=== PATIENT | female | born 1990 | race Caucasian/White ===

== ENCOUNTER 2021-01-25 02:33 | Emergency (ER) | payer BC, OTHER ==
[~2021-01-25] VITALS: Ht 175 cm; Wt 110.0 kg
[~2021-01-25 02:33] MED LIST: ONDA4TAB11 PO
[2021-01-25 02:50] VITALS: BP 128/69
--- NOTE | 2021-01-25 02:57 | ED GI ---
General Chief Complaint: Abdominal/GI Problems Stated Complaint: N/V/D Source of Information: Patient Exam Limitations: No Limitations History of Present Illness Date Seen by Provider: Jan 25, 2021 Time Seen by Provider: 02:41 Initial Comments Patient presents to the ER by private conveyance with her significant other and chief complaint of nausea vomiting diarrhea sudden onset tonight same time as her significant other. The ate Sonic. Not sure if maybe they got food poisoning. No fevers. She is vomiting blood in her diarrhea. Some cramping pain. She had some Zofran left over from a previous encounter and took a tablet but she says she thinks she vomited immediately back up. Allergies and Home Medications Allergies Uncoded Allergies: PENICILLIN (Allergy, Mild, 02/14/16) Home Medications Ondansetron 4 Mg Tab.rapdis, 4 MG PO Q6H PRN for NAUSEA/VOMITING Prescribed by: YULIET HATFIELD on 02/14/16 0540 Patient Home Medication List Home Medication List Reviewed: Yes Review of Systems Review of Systems Constitutional: No chills, No diaphoresis EENTM: No Blurred Vision, No Eye Pain Respiratory: Denies Cough, Denies Shortness of Air Cardiovascular: Denies Chest Pain, Denies Lightheadedness Gastrointestinal: Denies Constipated; Diarrhea, Nausea, Poor Fluid Intake, Vomiting Genitourinary: Denies Burning, Denies Discharge Musculoskeletal: No back pain, No joint pain All Other Systems Reviewed Negative Unless Noted: Yes Past Kqlouwh-Gfrlvl-Fqfglk Hx Patient Social History Alcohol Use: Denies Use Smoking Status: Never a Smoker Seasonal Allergies Seasonal Allergies: No Past Medical History Orthopedic, Tonsillectomy Reproductive Disorders: No Sexually Transmitted Disease: No HIV/AIDS: No Adverse Reaction/Blood Tranf: No Family Medical History No Pertinent Family Hx Physical Exam Vital Signs Capillary Refill : Height/Weight/BMI Height: 5'8" Weight: 190lbs. oz. 86.201845ql; BMI Method:Stated General Appearance: WD/WN, mild distress HEENT: PERRL/EOMI, pharynx normal Neck: full range of motion, normal inspection Respiratory: no respiratory distress, no accessory muscle use Cardiovascular: normal peripheral pulses, regular rate, rhythm (Heart rate in the 80s) Gastrointestinal: normal bowel sounds, non tender, soft Neurologic/Psychiatric: alert, oriented x 3 Skin: normal color, warm/dry Progress/Results/Core Measures Results/Orders My Orders Orders - LEO VORA Ua Culture If Indicated (01/25/21 02:35) Ondansetron Injection (Zofran Injectio (01/25/21 03:00) Progress Progress Note : Time: 02:54 Progress Note Well-appearing adult with a septic vital signs and nausea vomiting diarrhea. Likely toxin versus viral gastroenteritis. We will give her 8 mg ondansetron IM and some more tablets. We have instructed her to drink lots of fluids. Departure Impression Primary Impression: Gastroenteritis and colitis, toxic Disposition: 01 HOME, SELF-CARE Condition: Stable Departure-Patient Inst. Decision time for Depature: 02:55 Referrals: NO,LOCAL PHYSICIAN (PCP) Primary Care Physician Patient Instructions: [id number] Add. Discharge Instructions: I suspect you are exposed to some kind of toxin/food poisoning tonight. Symptoms should resolve in the next day or so. Let the diarrhea go for now. Ondansetron 1 to 2 tablets every 6 hours as necessary under your tongue to control your nausea so that she can continue putting in fluids faster than you are losing it. Return to the ER if you are becoming dehydrated or develop high fever above 102.5. If it is a virus then you may have fevers and it may last 3 to 5 days. All discharge instructions reviewed with patient and/or family. Voiced understanding. Scripts Ondansetron (Ondansetron Odt) 4 Mg Tab.rapdis 4 MG PO Q6H PRN for NAUSEA/VOMITING, #8 TAB 0 Refills Prov: LEO VORA 01/25/21 Work/School Note: Work Release Form Date Seen in the Emergency Department: Jan 25, 2021 Return to Work: Jan 27, 2021 Restrictions: No Restrictions LEO VORA Jan 25, 2021 02:57
[2021-01-25] MEDS ORDERED: ONDA4TAB11 PO (02:58)
[2021-01-25] MEDS ORDERED: ONDANSETRON 4 MG/2 ML (SDV) Z0FRAN IM ONE (03:00)
== END 2021-01-25 03:15 | disposition home or self-care (01) ==
LOC: EDUNIT# 02:33 → ER 02:35
DX: K52.1 Toxic gastroenteritis and colitis (principal); Z88.0 Allergy status to penicillin
CPT/HCPCS: 99284

== ENCOUNTER → 2021-10-07 | Outpatient (CLI) | payer BC ==
[~2021-10-07] VITALS: Ht 173 cm; Wt 97.7 kg
[~2021-10-07] MED LIST changes: +ACETAMINOPHEN 500 MG TAB (TYLENOL) PO PRN; +BAMLANIVIMAB 700 MG/ETESEVIMAB 1,400 MG IN NS IV ONE; +EPINEPHrine INJECTION 1 MG/ML AMP IM PRN; +ONDANSETRON 4 MG/2 ML (SDV) Z0FRAN IV PRN; +diphenhydrAMINE 50 MG/ML INJ (BENADRYL) IV PRN
[2021-10-07 09:50] VITALS: BP 122/65
[2021-10-07 10:36] VITALS: BP 122/65
[2021-10-07 11:27] VITALS: BP 105/74
[2021-10-07 11:40] VITALS: BP 105/74
[2021-10-07 11:41] VITALS: BP 105/74
== END ==
LOC: INFUSION 09:50
PROVIDERS: ATTEND Physician Assistant
DX: U07.1 COVID-19 (principal)

== ENCOUNTER 2023-07-24 22:07 | Emergency (ER) | payer BC ==
[~2023-07-24] VITALS: Ht 172.7 cm; Wt 98.9 kg
[~2023-07-24 22:07] MED LIST changes: -ACETAMINOPHEN 500 MG TAB (TYLENOL) PO PRN; -BAMLANIVIMAB 700 MG/ETESEVIMAB 1,400 MG IN NS IV ONE; -EPINEPHrine INJECTION 1 MG/ML AMP IM PRN; -ONDANSETRON 4 MG/2 ML (SDV) Z0FRAN IV PRN; -diphenhydrAMINE 50 MG/ML INJ (BENADRYL) IV PRN
[2023-07-24] MEDS ORDERED: NS IV 1000 ML 1,000 ML IV STA (23:29)
--- NOTE | 2023-07-24 23:40 | ED General ---
General Chief Complaint: Cardiac/General Problems Stated Complaint: CHEST TIGHTNESS, FATIGUE IN ARMS, DIZZINESS Nursing Triage Note: PT A&OX3; PT AMBULATES TO ROOM WITHOUT ASSISTANCE OF ER STAFF; PT ADVISES THAT TONIGHT AFTER WALKING AT THE PARK, SHE NOTICED SHE WAS HAVING SOME PALPITATIONS AND HEAVINESS IN HER CHEST; PT REPORTS THAT SHE HAS PREVIOUSLY HAD SIMILAR ISSUES BUT THAT THEY RESOLVED ON THEIR OWN; TONIGHT PTS SYMPTOMS HAVE CONTINUED; PT HAS BEEN EVALUATED BY PCP FOR SIMILAR SYMPTOMS BUT HAS NOT HAD A REFERRAL TO A REAL ESTATE [employer] [employer]NA[facility] (KERRY TEJEDA) History of Present Illness Date Seen by Provider: Jul 24, 2023 Time Seen by Provider: 23:18 Initial Comments 33yo F with PMH of pre-eclampsia and hypothyroidism presents to ED with c/o new onset heart palpitations, chest heaviness with radiation to mid back, and associated SOA, lightheadedness, and dizziness that started at 630pm this evening. Pt is currently 16 weeks with her second child. Pt see Dr. Winkler in [place] for OBGYN care. Pt states that for the past couple of weeks she has been experiencing episodes of palpitations when she skips meals and then episodes of dizziness and SOA after eating. Pt was advised by OB to eat frequent higher protein meals and states that this had been helping symptoms until this evening. Tonight, pt was doing chores around the house when she suddenly experienced "intense" palpitations that are worse than any of her other previous episodes, with associated midsternal chest heaviness. Pt states that that chest heaviness radiated to her mid back and felt like "something needed to be popped". Pt states that the chest heaviness and palpitations started to make her feel SOA especially when walking. Notes that she was SOA just ambulating from bed to bathroom which is not normal for her. Also notes some b/l "fatigue in arms". Pt ate dinner as recommended by her doctor, lolis zamudio with some sweet tea, but denies any improvement of symptoms. Pt states that she rested with her feet up and laid with her son but still her symptoms persisted. Pt took 2 tabs of tylenol at 823p with no relief. Pt says that she started to panic and cry at this time, which prompted her to come to the ED for further evaluation. In room, pt is sitting comfortably in bed. Notes improvement of pain since arriving to ED but states she still feels the palpitations. Pt takes a low dose ASA for her h/o pre-eclampsia. States that son recently had flu about a week ago. Not vaccinated for flu or COVID. Denies cough, fever, chills, abd pain, nausea, vomiting, diaphoresis, PERSON, urinary symptoms, diarrhea, h/o DVT/PE, recent long travel, h/o gestational diabetes or DM, and new leg swelling. Timing/Duration: 4-6 Hours Severity: Mild Modifying Factors: improves with Movement (exacerbates) Associated Systoms: Chest Pain (pressure); No Cough, No Diaphoresis, No Headaches, No Nausea/Vomiting; Shortness of Air (KERRY TEJEDA) Allergies and Home Medications Allergies Uncoded Allergies: PENICILLIN (Allergy, Mild, 02/14/16) Patient Home Medication List Home Medication List Reviewed: Yes (KERRY TEJEDA) Home Medication List Reviewed: Yes (KAMERON MEDINA MD) Ondansetron (Ondansetron Odt) 4 Mg Tab.rapdis, 4 MG PO Q6H PRN for NAUSEA/VOMITING Prescribed by: YULIET HATFIELD on 02/14/16 0540 Ondansetron (Ondansetron Odt) 4 Mg Tab.rapdis, 4 MG PO Q6H PRN for NAUSEA/VO MITING Prescribed by: LEO VORA on 01/25/21 0258 Review of Systems Review of Systems Constitutional: no symptoms reported EENTM: no symptoms reported Expected Date of Delivery: Jan 09, 2024 (KERRY TEJEDA) Past Otqhnnc-Fptsyg-Nvmfgw Hx Patient Social History Tobacco Use?: No Use of E-Cig and/or Vaping dev: No Substance use?: No Alcohol Use?: No Pt feels they are or have been: No (KERRY TEJEDA) Immunizations Up To Date Influenza Vaccine Up-to-Date: No; Not Current First/Initial COVID19 Vaccinat: N/A (KERRY TEJEDA) Seasonal Allergies Seasonal Allergies: No (KERRY TEJEDA) Past Medical History Surgery/Hospitalization HX: P:1/PRE-ECLAMPSIA Surgeries: Yes Section, Gallbladder, Orthopedic, Tonsillectomy Respiratory: No Cardiac: No Neurological: No : Yes Expected Date of Delivery: Jan 09, 2024 Last Menstrual Period: April 04, 2023 Reproductive Disorders: No Sexually Transmitted Disease: No HIV/AIDS: No Gastrointestinal: No Musculoskeletal: No Endocrine: No Hypothyroidsim Cancer: No Psychosocial: No Integumentary: No Blood Disorders: No Adverse Reaction/Blood Tranf: No (KERRY TEJEDA) Family Medical History Other Conditions/Hx (Mother-h/o recurrent episodes of "tachycardia") (KERRY TEJEDA) Physical Exam Vital Signs Vital Signs - First Documented 07/24/23 22:15 Temp 36.6 Pulse 93 Resp 16 B/P (MAP) 142/99 (113) Pulse Ox 100 O2 Delivery Room Air (KAMERON MEDINA MD) Vital Signs Capillary Refill : Less Than 3 Seconds (KERRY TEJEDA) Height, Weight, BMI Height: 5'8" Weight: 190lbs. oz. 86.399046lh; 33.00 BMI Method:Stated General Appearance: No Apparent Distress, WD/WN HEENT: PERRL/EOMI Neck: Non Tender, Supple Respiratory: Chest Non Tender, Lungs Clear, Normal Breath Sounds, No Accessory Muscle Use, No Respiratory Distress Cardiovascular: Regular Rate, Rhythm, No Murmur, Normal Peripheral Pulses Gastrointestinal: Normal Bowel Sounds, Non Tender, Soft Back: Normal Inspection, No CVA Tenderness, No Vertebral Tenderness Extremity: Non Tender, No Calf Tenderness Neurologic/Psychiatric: Alert, Oriented x3, No Motor/Sensory Deficits, Normal Mood/Affect Skin: Normal Color, Warm/Dry Lymphatic: No Adenopathy (KERRY TEJEDA) Progress/Results/Core Measures Suspected Sepsis SIRS Temperature: Pulse: 93 Respiratory Rate: 16 Laboratory Tests 07/24/23 00:25: Blood Pressure 142 /99 Mean: 113 Laboratory Tests 07/24/23 00:25: (KERRY TEJEDA) Results/Orders Lab Results Laboratory Tests Test 07/24/23 00:25 Range/Units White Blood Count 7.6 4.3-11.0 10^3/uL Red Blood Count 3.93 3.80-5.11 10^6/uL Hemoglobin 12.1 11.5-16.0 g/dL Hematocrit 36 35-52 % Mean Corpuscular Volume 91 80-99 fL Mean Corpuscular Hemoglobin 31 25-34 pg Mean Corpuscular Hemoglobin Concent 34 32-36 g/dL Red Cell Distribution Width 12.5 10.0-14.5 % Platelet Count 214 130-400 10^3/uL Mean Platelet Volume 9.9 9.0-12.2 fL Immature Granulocyte % (Auto) 1 % Neutrophils (%) (Auto) 74 42-75 % Lymphocytes (%) (Auto) 14 12-44 % Monocytes (%) (Auto) 10 0-12 % Eosinophils (%) (Auto) 1 0-10 % Basophils (%) (Auto) 0 0-10 % Neutrophils # (Auto) 5.7 1.8-7.8 10^3/uL Lymphocytes # (Auto) 1.0 1.0-4.0 10^3/uL Monocytes # (Auto) 0.7 0.0-1.0 10^3/uL Eosinophils # (Auto) 0.1 0.0-0.3 10^3/uL Basophils # (Auto) 0.0 0.0-0.1 10^3/uL Immature Granulocyte # (Auto) 0.1 0.0-0.1 10^3/uL Prothrombin Time 12.2 12.2-14.7 SEC INR Comment 0.9 0.8-1.4 Activated Partial Thromboplast Time 26 24-35 SEC Sodium Level 137 135-145 MMOL/L Potassium Level 3.6 3.6-5.0 MMOL/L Chloride Level 105 98-107 MMOL/L Carbon Dioxide Level 19 L 21-32 MMOL/L Anion Gap 13 5-14 MMOL/L Blood Urea Nitrogen 11 7-18 MG/DL Creatinine 0.66 0.60-1.30 MG/DL Estimat Glomerular Filtration Rate 118 BUN/Creatinine Ratio 17 Glucose Level 102 70-105 MG/DL Calcium Level 9.1 8.5-10.1 MG/DL Corrected Calcium 9.2 8.5-10.1 MG/DL Magnesium Level 1.9 1.6-2.4 MG/DL Total Bilirubin 0.2 0.1-1.0 MG/DL Aspartate Amino Transf (AST/SGOT) 17 5-34 U/L Alanine Aminotransferase (ALT/SGPT) 14 0-55 U/L Alkaline Phosphatase 45 40-136 U/L Troponin I < 0.028 <0.028 NG/ML Total Protein 7.4 6.4-8.2 GM/DL Albumin 3.9 3.2-4.5 GM/DL (KAMERON MEDINA MD) My Orders Orders - KAMERON MEDINA MD Heart Tones (07/24/23 23:25) Cbc With Automated Diff (07/24/23) Magnesium (07/24/23) Chest 1 View, Ap/Pa Only (07/24/23) Comprehensive Metabolic Panel (07/24/23) Protime With Inr (07/24/23) Partial Thromboplastin Time (07/24/23) O2 (07/24/23) Monitor-Rhythm Ecg Trace Only (07/24/23) Lipid Panel (07/25/23 06:00) Ed Iv/Invasive Line Start (07/24/23) Troponin I Steffi (07/24/23) Ns Iv 1000 Ml (Ns Iv 1000 Ml) (07/24/23 23:29) (KAMERON MEDINA MD) Vital Signs/I&O 07/24/23 22:15 Temp 36.6 Pulse 93 Resp 16 B/P (MAP) 142/99 (113) Pulse Ox 100 O2 Delivery Room Air (KAMERON MEDINA MD) Vital Signs/I&O Capillary Refill : Less Than 3 Seconds (KERRY TEJEDA) Blood Pressure Mean: 113 Progress Note : Time: 01:36 Progress Note Patient seen and evaluated by me. I have reviewed the medical student's documentation and agree. My evaluation today includes physical exam, chest pain protocol to include CBC, Chem-12, magnesium, serum troponin, EKG, single view chest x-ray. heart tones were also obtained as the patient is approximately 15 weeks gestation. Pertinent physical exam findings well-develop ed well-nourished mildly obese female in no acute distress. She is slightly hypertensive on arrival. Heart is regular, lungs are clear. No wheezing or distress is noted. She has brisk radial pulses bilaterally. Abdomen is soft and nontender. No lower extremity edema. No focal neurologic deficits are noted on exam. Differential diagnosis includes dehydration, arrhythmia, low clinical concern for STEMI, aortic dissection, PE. Labs independently reviewed and interpreted by me. CBC is reviewed and completely normal. Chemistry is completely unremarkable, normal magnesium, undetectable troponin. Coags within normal limits. Chest x-ray shows no acute abnormality. EKG is normal sinus rhythm at [address] segment change or arrhythmia. She has not been hypoxic or tachycardic on room air. Slightly hypertensive on arrival but this has improved at discharge to 142/75. She feels better at discharge without any intervention. heart tones taken at bedside in the 150s. Suspect that she may be having some type of tachycardia associated with . She is not clinically dehydrated nor do her labs ref lect this. She has had no arrhythmia while in the emergency department. No concerning findings for ST segment elevation KS, chest x-ray is normal, no clinical suspicion for dissection. No suspicion at this time for pulmonary embolism. Reassurance is provided to the patient. She has follow-up scheduled within the next week with her OB provider. Strict return precautions provided in both verbal and written format. All questions are sought and answered. Patient is stable for discharge. (KAMERON MEDINA MD) ECG Initial ECG Impression Date: Jul 24, 2023 Initial ECG Impression Time: 22:55 Initial ECG Rate: 78 Initial ECG Rhythm: Normal Sinus Initial ECG Intervals: Normal Initial ECG Impression: Nonspecific Changes (inferiorly) (KAMERON MEDINA MD) Diagnostic Imaging Diagonstic Imaging: Xray Plain Films/CT/US/NM/MRI: chest Comments Single view chest x-ray independently reviewed and interpreted by me, normal mediastinum, no effusions, no infiltrate (KAMERON MEDINA MD) Departure Impression Primary Impression: Palpitations Additional Impressions: Chest discomfort 15 weeks gestation of Disposition: HOME, SELF-CARE Condition: Improved Departure-Patient Inst. Decision time for Depature: 01:39 (KAMERON MEDINA MD) Referrals: ANA PALACIOS MD (PCP/Family) Primary Care Physician Patient Instructions: Chest Pain (DC) Add. Discharge Instructions: Drink plenty of fluids to stay well-hydrated. You can take gtzy-syd-bjnueyq extra strength Tylenol 2 tablets every 6 hours as needed for discomfort. If you have a return of chest pain especially pain that is associated with shortness of breath, nausea or sweating please return to the emergency department for reevaluation. Please follow-up with your OB care provider as scheduled. Verification and Attestation of Medical Student E/M Service A medical student performed and documented this service in my presence. I reviewed and verified all information documented by the medical student and made modifications to such information, when appropriate. I personally performed the physical exam and medical decision making. Kameron Medina, Jul 25, 2023,01:39 (KAMERON MEDINA MD) KERRY TEJEDA Jul 24, 2023 23:40 KAMERON MEDINA MD Jul 25, 2023 01:40
[2023-07-25 00:47] LABS: BASOPHILS % (AUTO) 0 % (0-10); EOSINOPHILS # (AUTO) 0.1 10^3/uL (0.0-0.3); EOSINOPHILS % (AUTO) 1 % (0-10); HEMATOCRIT 36 % (35-52); HEMOGLOBIN 12.1 g/dL (11.5-16.0); LYMPHOCYTES % (AUTO) 14 % (12-44); MEAN CORPUSCULAR HEMOGLOBIN 31 pg (25-34); MEAN CORPUSCULAR HGB CONC 34 g/dL (32-36); MEAN CORPUSCULAR VOLUME 91 fL (80-99); MEAN PLATELET VOLUME 9.9 fL (9.0-12.2); MONOCYTES # (AUTO) 0.7 10^3/uL (0.0-1.0); MONOCYTES % (AUTO) 10 % (0-12); NEUTROPHILS # (AUTO) 5.7 10^3/uL (1.8-7.8); NEUTROPHILS % (AUTO) 74 % (42-75); PLATELET COUNT 214 10^3/uL (130-400); WHITE BLOOD COUNT 7.6 10^3/uL (4.3-11.0)
[2023-07-25 00:54] LABS: INR 0.9 (0.8-1.4); PROTHROMBIN TIME PATIENT 12.2 SEC (12.2-14.7)
[2023-07-25 00:55] LABS: ALBUMIN 3.9 GM/DL (3.2-4.5); CHLORIDE 105 MMOL/L (98-107); POTASSIUM 3.6 MMOL/L (3.6-5.0); SODIUM 137 MMOL/L (135-145)
[2023-07-25 00:56] LABS: CALCIUM 9.1 MG/DL (8.5-10.1)
[2023-07-25 00:57] LABS: GLUCOSE 102 MG/DL (70-105); TOTAL PROTEIN 7.4 GM/DL (6.4-8.2)
[2023-07-25 00:58] LABS: CARBON DIOXIDE 19 MMOL/L (21-32)
[2023-07-25 00:59] LABS: BILIRUBIN,TOTAL 0.2 MG/DL (0.1-1.0)
[2023-07-25 01:01] LABS: ALKALINE PHOSPHATASE 45 U/L (40-136); CREATININE SERUM 0.66 MG/DL (0.60-1.30); GFR ESTIMATED 118
[2023-07-25 01:02] LABS: BUN/CREATININE RATIO 17
[2023-07-25 01:03] LABS: MAGNESIUM 1.9 MG/DL (1.6-2.4)
[2023-07-25 01:04] LABS: ALANINE AMINOTRANSFERASE 14 U/L (0-55)
[2023-07-25 01:43] VITALS: BP 129/83
--- NOTE | 2023-07-25 06:21 | Diagnostic Imaging Report ---
EXAMINATION: Chest 1 view HISTORY: Chest pain COMPARISON: None available. FINDINGS: Heart size and pulmonary vasculature are normal. Mild interstitial opacities in the lung bases. No pleural effusion or pneumothorax. The osseous structures are intact. IMPRESSION: 1. Mild interstitial opacities in the lung bases. This may represent a combination of soft tissue attenuation of the breasts and atelectasis although edema or pneumonia would be within the differential in the appropriate clinical setting. Dictated by: Dictated on workstation # [id number]
== END 2023-07-25 01:43 | disposition home or self-care (01) ==
LOC: EDUNIT# 22:07 → ER 22:10
DX: O99.891 Other specified diseases and conditions complicating pregnancy (principal); R00.2 Palpitations; R07.89 Other chest pain; Z3A.16 16 weeks gestation of pregnancy; Z79.82 Long term (current) use of aspirin; Z28.310 Unvaccinated for COVID-19
CPT/HCPCS: 36415; 71045; 80053; 83735; 84484; 85025; 85610; 85730; 93005; 93041